=== PATIENT | female | born 1975 | race Caucasian/White ===

== ENCOUNTER 2021-01-04 18:11 | IRF | payer OTHER, SELFPAY ==
--- NOTE | ~2021-01-04 | US_ITS ---
EXAMINATION: US abdomen limited DATE: 01/11/2021 10:56 INDICATION: Right upper quadrant pain, elevated alkaline phosphatase TECHNIQUE: Multiple grayscale and Doppler ultrasound images of the abdomen were obtained. COMPARISON: None available FINDINGS: The head and body of the pancreas are normal. The pancreatic tail is obscured by bowel gas. The liver is normal with normal echogenicity and echotexture. No surface nodularity. Normal hepatope shruti flow in the main portal vein. There is a 5 mm gallbladder polyp. No gallstones or pericholecystic fluid are identified. The normal common bile duct measures 4 mm. There was no sonographic Bobo sig n. IMPRESSION: 1. No sonographic correlate for the patient's symptoms. 2. 5 mm gallbladder polyp. Reviewed, dictated and finalized at location A.
--- NOTE | ~2021-01-04 | US_ITS ---
EXAMINATION: US venous doppler LE EXAM DATE: 01/05/2021 11:38 INDICATION: Pelvic surgery last week, having left greater than right hip pain radiating. TECHNIQUE: Multiple grayscale, color flow and Doppler images of the lower extremity deep venous syste ms bilaterally were obtained and reviewed. There is no prior study for comparison. FINDINGS: Right side: The right common femoral, femoral and profunda veins demonstrate normal color flow, respi ratory variation, augmentation and compressibility. Compressibility, color flow confirmed within the right popliteal, posterior tibial, peroneal, and greater saphenous veins. Left side: The left common femoral, femoral and profunda veins demonstrate normal color flow, respira tory variation, augmentation and compressibility. Compressibility, color flow confirmed within the l eft popliteal, posterior tibial, peroneal, and greater saphenous veins. IMPRESSION: No lower extremity deep venous thrombosis bilaterally. Reviewed, dictated and finalized at location B.
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
--- NOTE | 2021-01-04 18:50 | ADMGEN ---
This patient, Malissa Woo, was admitted to [facility] Room 220-02. Patient/family oriented to hospital policies and general routines including ID bracelet, bed and alarms, visiting hours, pain management, procedures, bathroom and other care routines, personal items, smoking policy, room service/diet, and visiting hours. Information on how to activate the Rapid Response Team has been discussed. Patient/Family are encouraged to report perceived risks to care and to ask questions if they do not understand what they are told or what they should do.
[2021-01-04 18:51] VITALS: BMI 29.5
[2021-01-04 18:52] VITALS: BP 115/40; PULSE 110; RESP 18; TEMP 36.9; O2SAT 100
[2021-01-04] MEDS: oxyCODONE HCL (*CRX) 5 MG TAB IR 10 MG PO (19:26)
[2021-01-04] MEDS: GABAPENTIN 300 MG CAPSULE 600 MG PO (20:56)
[2021-01-04] MEDS: MELATONIN 3 MG TABLET PO (20:56)
[2021-01-04] MEDS: CYCLOBENZAPRINE HCL 10 MG TABLET PO (20:57)
[2021-01-04 21:41] VITALS: BP 128/49; PULSE 102; RESP 16; TEMP 36.7; O2SAT 100
[2021-01-05] VITALS (8 sets, daily range): BP systolic 106–135; BP diastolic 60–70; PULSE 97–105; RESP 16–18; TEMP 36.1–37.3; O2SAT 96–100; BMI 29.5
[2021-01-05 05:22] LABS: Basophils Absolute Auto 0.1 K/mm3 (0.0-0.1); Basophils Percent Auto 0.8 % (0.2-1.2); Eosinophils Absolute Auto 0.3 K/mm3 (0-0.3); Eosinophils Percent Auto 2.9 % (0-4.4); Hematocrit 23.2 % (37.0-47.0); Lymphocytes Absolute Auto 1.64 K/mm3 (0.9-3.2); Lymphocytes Percent Auto 16.4 % (18.3-44.2); Mean Corpuscular HGB Conc 29.7 g/dl (32-36); Mean Corpuscular Hemoglobin 26.3 pg (26-34); Mean Corpuscular Volume 88.5 fl (80-100); Mean Platelet Volume 10.3 fl (7.4-10.4); Monocytes Absolute Auto 0.7 K/mm3 (0.1-0.6); Neutrophils Absolute Auto 5.8 K/mm3 (1.3-6.7); Neutrophils Percent Auto 57.9 % (45.5-73.1); Nucleated Red Blood Cells Absolute Auto 0.2 K/mm3 (0.0-0.012); Nucleated Red Blood Cells Perc 2.2 % (0.0-0.2); Platelet Count Result 309 k/mm3 (150-375); Red Blood Count 2.62 M/mm3 (4.2-5.4); Red Cell Distribution Width 18.6 % (11.5-14.5)
[2021-01-05 05:30] LABS: Alanine Aminotransferase 137 U/L (4-35); Albumin Level 2.8 g/dL (3.5-5.1); Alkaline Phosphatase 154 U/L (38-126); Anion Gap 4 mmol/L (8-16); Aspartate Amino Transferase 151 U/L (14-36); Bilirubin,Total 1.2 mg/dL (0.2-1.3); Blood Urea Nitrogen 10 mg/dL (7-17); Carbon Dioxide 27 mmol/L (22-30); Chloride 105 mmol/L (98-107); Estimated CRCL calculation 102 ml/min; Estimated Glomerular Filt Rate > 60; Glucose 97 mg/dL (65-105); Potassium 3.7 mmol/L (3.4-5.0); Sodium 136 mmol/L (137-145)
[2021-01-05 05:52] LABS: Hemoglobin 6.9 g/dL (12.0-15.0)
[2021-01-05 05:54] LABS: Hypochromasia 2+ (NORMAL); Platelet Estimate Adequate (Adequate)
[2021-01-05] MEDS: GABAPENTIN 300 MG CAPSULE 600 MG PO ×3 (06:08→20:50)
[2021-01-05] MEDS: CYCLOBENZAPRINE HCL 10 MG TABLET PO ×2 (06:09→13:08)
[2021-01-05 07:30] LABS: Add Urine Microscopic? YES; Appearance Urine Clear (Clear); Bacteria Urine Trace /hpf; Bilirubin Urine Negative (Negative); Blood Urine Negative (Negative); Color Urine Amber (Yellow); Glucose Urine UA Negative (Negative); Ketones Urine Negative (Negative); Leukocyte Esterase Ur Negative LEU/UL (Negative); Mucus Urine Rare /lpf; Nitrate Urine Negative (Negative); Protein Urine 1+ mg/dL (Negative); RBC Urine 0-2 /hpf (0-2); Specific Grav Ur 1.016 (1.001-1.035); Squamous Epithelial Cell Urine Rare /hpf (Few)
[2021-01-05] MEDS: OXYBUTYNIN CHLORIDE 5 MG TABLET PO ×2 (08:38→13:08)
[2021-01-05] MEDS: ENOXAPARIN 40 MG/0.4 ML SYRINGE SUB-Q (08:38)
[2021-01-05] MEDS: ACETAMINOPHEN 500 MG TABLET 1000 MG PO ×2 (08:38→13:08)
[2021-01-05] MEDS: SENNOSIDES 8.6 MG TABLET PO (08:39)
[2021-01-05] MEDS: PARoxetine 20 MG TABLET 40 MG PO (08:39)
[2021-01-05] MEDS: oxyCODONE HCL (*CRX) 5 MG TAB IR 10 MG PO ×2 (08:39→15:20)
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
--- NOTE | 2021-01-05 10:48 | PCPTNOTE ---
Initiated physical therapy evaluation at 10:15 AM. 15 minutes of evaluation completed prior to patient being taken for doppler. Evaluation to be completed later this date. MARCELO RomeroT
[2021-01-05] MEDS: SODIUM CHLORIDE 0.9% IV 250 ML 30 ML IV CONT (12:15)
[2021-01-05] MEDS: TUBING, BLOOD PLUM PUMP TUBING 1 EACH XX (12:16)
--- NOTE | 2021-01-05 13:13 | PCNSR ---
On 01/05/21, the student,Brie Swann , provided care and completed [facility] documentation on this patient. I have reviewed the student's documentation and agree with the findings.
--- NOTE | 2021-01-05 13:38 | PCPTNOTE ---
Resumed physical therapy evaluation to patient tolerance. Pt 8/10 pain at resumed start time. Pain increases to 9/10 with transfer to bed. Pt reports dizziness/lightheadedness with bed mobility, vitals WNL. Pt unable to tolerate continued evaluation at this time. Jahaira Ash, MARCELOT
--- NOTE | 2021-01-05 14:56 | PCPTNOTE ---
Attempted to see patient at 14:34 to complete patient's PT minutes for today, however patient unable to tolerate full treatment due to increased pain and dizziness with activity. Patient short 20 minutes this date despite multiple attempts to complete patient's treatments. RN and Doctor aware of patient's pain. Will continue to see patient per plan of care. Venita Garcia, SHOWROOM SALES ASSISTANT
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
[2021-01-05] MEDS: PHARMACIST COMMUNICATION ORDER 1 EACH XX (17:48)
[2021-01-05] MEDS: MELATONIN 3 MG TABLET PO (20:50)
[2021-01-05] MEDS: methocarbamoL 750 MG TABLET PO (20:50)
[2021-01-05 21:00] LABS: Acetaminophen < 10 ug/mL (10-30)
[2021-01-06 05:27] LABS: Hematocrit 29.2 % (37.0-47.0); Hemoglobin 9.2 g/dL (12.0-15.0); Mean Corpuscular HGB Conc 31.5 g/dl (32-36); Mean Corpuscular Hemoglobin 28.4 pg (26-34); Mean Corpuscular Volume 90.1 fl (80-100); Platelet Count Result 300 k/mm3 (150-375); Red Blood Count 3.24 M/mm3 (4.2-5.4); Red Cell Distribution Width 19.6 % (11.5-14.5); White Blood Count 9.9 K/mm3 (4.5-10.0)
[2021-01-06 05:40] LABS: Alanine Aminotransferase 293 U/L (4-35); Albumin Level 2.9 g/dL (3.5-5.1); Alkaline Phosphatase 238 U/L (38-126); Anion Gap 6 mmol/L (8-16); Aspartate Amino Transferase 298 U/L (14-36); Bilirubin,Total 1.1 mg/dL (0.2-1.3); Blood Urea Nitrogen 13 mg/dL (7-17); Calcium 8.5 mg/dL (8.4-10.2); Carbon Dioxide 28 mmol/L (22-30); Chloride 107 mmol/L (98-107); Estimated CRCL calculation 102 ml/min; Estimated Glomerular Filt Rate > 60; Glucose 100 mg/dL (65-105); Potassium 4.2 mmol/L (3.4-5.0); Sodium 141 mmol/L (137-145)
[2021-01-06 05:42] VITALS: BP 128/50; PULSE 97; RESP 18; TEMP 36.2; O2SAT 99
[2021-01-06] MEDS: methocarbamoL 750 MG TABLET PO ×4 (06:01→20:40)
[2021-01-06] MEDS: GABAPENTIN 300 MG CAPSULE 600 MG PO ×3 (06:01→20:39)
[2021-01-06 08:00] VITALS: PULSE 97; RESP 18; O2SAT 99
[2021-01-06] MEDS: PARoxetine 20 MG TABLET 40 MG PO (08:23)
[2021-01-06] MEDS: ENOXAPARIN 40 MG/0.4 ML SYRINGE SUB-Q (08:23)
[2021-01-06] MEDS: SENNOSIDES 8.6 MG TABLET PO (08:24)
[2021-01-06] MEDS: oxyCODONE HCL (*CRX) 5 MG TAB IR 10 MG PO ×2 (08:28→12:04)
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
[2021-01-06 14:00] VITALS: BP 111/67; PULSE 109; RESP 18; TEMP 36.3; O2SAT 95
[2021-01-06] MEDS: MELATONIN 3 MG TABLET PO (20:39)
[2021-01-06 21:59] VITALS: BP 122/65; PULSE 104; RESP 18; TEMP 36.6; O2SAT 96
[2021-01-07 05:47] VITALS: BP 122/55; PULSE 100; RESP 18; TEMP 36.3; O2SAT 97
[2021-01-07] MEDS: GABAPENTIN 300 MG CAPSULE 600 MG PO ×3 (06:02→21:33)
[2021-01-07] MEDS: oxyCODONE HCL (*CRX) 5 MG TAB IR 10 MG PO ×2 (08:14→12:15)
[2021-01-07] MEDS: ENOXAPARIN 40 MG/0.4 ML SYRINGE SUB-Q (08:14)
[2021-01-07] MEDS: NEOMYCIN/POLYMYXIN/BACITRACIN OINTMENT 15 GM TUBE 1 APPLIC TOPICAL (08:15)
[2021-01-07] MEDS: PARoxetine 20 MG TABLET 40 MG PO (08:15)
[2021-01-07] MEDS: SENNOSIDES 8.6 MG TABLET PO (08:15)
[2021-01-07] MEDS: methocarbamoL 750 MG TABLET PO ×4 (08:15→20:37)
[2021-01-07 14:00] VITALS: BP 124/78; PULSE 104; RESP 20; TEMP 36.3; O2SAT 98
[2021-01-07] MEDS: MELATONIN 3 MG TABLET PO (20:37)
[2021-01-07 21:06] VITALS: BP 127/79; PULSE 93; RESP 16; TEMP 36.8; O2SAT 99
[2021-01-08 04:47] LABS: Hematocrit 31.2 % (37.0-47.0); Hemoglobin 9.4 g/dL (12.0-15.0)
[2021-01-08 04:57] LABS: Alanine Aminotransferase 227 U/L (4-35); Albumin Level 3.2 g/dL (3.5-5.1); Alkaline Phosphatase 276 U/L (38-126); Anion Gap 5 mmol/L (8-16); Aspartate Amino Transferase 107 U/L (14-36); Bilirubin,Total 0.8 mg/dL (0.2-1.3); Blood Urea Nitrogen 14 mg/dL (7-17); Calcium 8.6 mg/dL (8.4-10.2); Carbon Dioxide 26 mmol/L (22-30); Chloride 105 mmol/L (98-107); Estimated CRCL calculation 102 ml/min; Estimated Glomerular Filt Rate > 60; Glucose 103 mg/dL (65-105); Potassium 4.3 mmol/L (3.4-5.0); Sodium 136 mmol/L (137-145)
[2021-01-08] MEDS: GABAPENTIN 300 MG CAPSULE 600 MG PO ×2 (05:46→13:40)
[2021-01-08 06:00] VITALS: BP 130/64; PULSE 103; RESP 16; TEMP 36.3; O2SAT 97
[2021-01-08] MEDS: SENNOSIDES 8.6 MG TABLET PO (07:29)
[2021-01-08] MEDS: oxyCODONE HCL (*CRX) 5 MG TAB IR PO ×2 (07:29→12:19)
[2021-01-08] MEDS: PARoxetine 20 MG TABLET 40 MG PO (07:29)
[2021-01-08] MEDS: ENOXAPARIN 40 MG/0.4 ML SYRINGE SUB-Q (07:29)
[2021-01-08] MEDS: methocarbamoL 750 MG TABLET PO ×3 (07:29→17:07)
[2021-01-08] MEDS: NEOMYCIN/POLYMYXIN/BACITRACIN OINTMENT 15 GM TUBE 1 APPLIC TOPICAL (07:30)
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
--- NOTE | 2021-01-08 13:29 | PCNFU ---
Nutrition Follow-Up Complete: Nutrition Diagnosis: Involuntary weight gain related to decreased physical activity as evidenced by a BMI of 29.5 and patient's statement of weighing the heaviest she has ever been. Nutrition Goal: Have patient meet estimated nutritional needs. Goal has been met, patient is consuming 75-100% of meals and supplements. Nutrition recommendation: Continue with Regular diet, Ensure compact (220 calories and 9grams of protein) supplement TID, and Frozen Nutritional Treat (300 calories and 9 grams of protein) once per day. Last recorded weight is 80.5 kg. Recommend obtaining new weight. Bowel Motility: Last documented on 01/07 Labs Reviewed: Hgb(9.4), Hct (31.2), Alb (3.2), Na (136), Cr (0.6) Meds Noted: Bisacodyl, Flexeril, Lovenox, Zofran, Paxil, Miralax, Senna Additional Notes: Left hip wound and bilateral hip bruises with dry skin. Agree with diet orders. Patient reports having a better appetite and likes the supplements. Patient has no nutritional concerns/ questions at this time. Will follow up in 7 days.
[2021-01-08 14:00] VITALS: BP 124/84; PULSE 108; RESP 20; TEMP 36.4; O2SAT 98
--- NOTE | 2021-01-08 14:03 | PCPTNOTE ---
Malissa Curtis Walker was evaluated for a wheeled walker on 01/08/2021 by this physical therapist. The wheeled walker will resolve patient's mobility limitations and will be used for ADL's within the home. The patient can safely use the wheeled walker. ?The wheeled walker will resolve the patient?s mobility deficits, including NWBing L LE, decreased endurance, and balance deficits.
--- NOTE | 2021-01-08 14:18 | PCNSR ---
On 01/08/21, the student, Brie Swann, provided care and completed [facility] documentation on this patient. I have reviewed the student's documentation and agree with the findings.
--- NOTE | 2021-01-08 14:20 | PCPTNOTE ---
Brooklyn A. DOM Pat completed an inpatient rehab wheelchair evaluation on Malissa Woo on 01/08/2021. The patient is unable to safely and independently ambulate household distances due to their current impairments. Their diagnosis is L Sacral Fx,L Sup;Inf Pubic Rami Fx,L4-5 Transv Fx and their impairments include decreased strength, decreased endurance, decreased range of motion, decreased balance and lower extremity weakness. Malissa's weight bearing status is weight-bearing as tolerated on the right lower leg and non weight bearing left leg. The patient demonstrates significant functional mobility limitations that impair their ability to participate in mobility-related activities of daily living (MRADLs), including toileting, feeding, dressing, grooming, and bathing in the customary locations in the home. These limitations cannot be sufficiently resolved by the use of an appropriately fitted cane or walker. It is recommended that the patient utilize a wheelchair for functional mobility within the home in order to facilitate optimal safety, independence and participation in all MRADL's and adequately access their home environment on a regular basis. The patient's home provides adequate access between rooms, maneuvering space, and surfaces to accommodate the recommended wheelchair. The use of a wheelchair for functional mobility is strongly recommended and the patient is receptive to using the wheelchair. The use of this wheelchair will significantly improve the patient's ability to participate in MRADLS and the patient will use it on a regular basis in the home. This will facilitate optimal safety, independence, and participation. The patient has demonstrated sufficient physical and mental capabilities needed to safely propel a manual wheelchair that is provided in the home during a typical day. Recommended Wheelchair Frame: standard Recommended Wheelchair Size: 18x20 Recommended Wheelchair Cushion:standard Wheelchair Leg Recommendations: Bilateral elevating leg rests -Elevating legrests are recommended because the patient has significant edema of the lower extremities that requires an elevating legrest. -Anti-tippers are recommended due to patient demonstrating increased risk for falls. They would benefit from anti-tippers with added safety and stabilization. Brooklyn Pat SPRUE KNOCKER 01/08/2021 Evaluating Therapist Date I agree with and certify that the above recommendation is medically necessary. Referring Physician Date I agree with and certify that the above recommendation is medically necessary. Referring Physician Date
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
[2021-01-08] MEDS: MELATONIN 3 MG TABLET PO (20:51)
[2021-01-08] MEDS: methocarbamoL 750 MG TABLET 1500 MG PO (20:51)
[2021-01-08 21:12] VITALS: BP 129/55; PULSE 103; RESP 16; TEMP 36.7; O2SAT 99
[2021-01-09] MEDS: GABAPENTIN 300 MG CAPSULE 600 MG PO ×4 (00:53→21:44)
[2021-01-09] MEDS: ACETAMINOPHEN 500 MG TABLET PO (01:20)
[2021-01-09 06:00] VITALS: BP 130/72; PULSE 89; RESP 16; TEMP 36.1; O2SAT 100
[2021-01-09] MEDS: oxyCODONE HCL (*CRX) 5 MG TAB IR PO ×2 (07:37→12:45)
[2021-01-09] MEDS: ENOXAPARIN 40 MG/0.4 ML SYRINGE SUB-Q (07:37)
[2021-01-09] MEDS: PARoxetine 20 MG TABLET 40 MG PO (07:38)
[2021-01-09] MEDS: methocarbamoL 750 MG TABLET PO ×4 (07:38→20:42)
[2021-01-09] MEDS: NEOMYCIN/POLYMYXIN/BACITRACIN OINTMENT 15 GM TUBE 1 APPLIC TOPICAL (07:38)
[2021-01-09] MEDS: SENNOSIDES 8.6 MG TABLET PO (07:39)
[2021-01-09 08:13] LABS: Creatine Kinase 107 U/L (30-135)
[2021-01-09 09:40] LABS: Hepatitis B Surface Antigen Negative (Negative)
[2021-01-09 09:45] LABS: HAV RESULT Negative (Negative); Hepatitis B Core IgM Result Negative (Negative)
[2021-01-09 09:57] LABS: Hepatitis C Virus Antibody Negative (Negative)
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
[2021-01-09 14:00] VITALS: BP 138/79; PULSE 92; RESP 20; TEMP 36.6; O2SAT 98
[2021-01-09] MEDS: oxyCODONE HCL (*CRX) 10 MG TAB SR 12HR PO (20:42)
[2021-01-09] MEDS: MELATONIN 3 MG TABLET PO (20:43)
[2021-01-09 21:27] VITALS: BP 135/68; PULSE 104; RESP 18; TEMP 36.5; O2SAT 98
[2021-01-10] MEDS: GABAPENTIN 300 MG CAPSULE 600 MG PO ×3 (05:47→21:39)
[2021-01-10 05:56] VITALS: BP 124/65; PULSE 90; RESP 14; TEMP 36.1; O2SAT 98
[2021-01-10 09:14] LABS: Alanine Aminotransferase 128 U/L (4-35); Albumin Level 3.8 g/dL (3.5-5.1); Alkaline Phosphatase 309 U/L (38-126); Aspartate Amino Transferase 55 U/L (14-36); Bilirubin,Total 0.7 mg/dL (0.2-1.3)
[2021-01-10] MEDS: ENOXAPARIN 40 MG/0.4 ML SYRINGE SUB-Q (09:22)
[2021-01-10] MEDS: oxyCODONE HCL (*CRX) 2.5 MG TAB IR PO ×2 (09:22→12:38)
[2021-01-10] MEDS: SENNOSIDES 8.6 MG TABLET PO (09:23)
[2021-01-10] MEDS: methocarbamoL 750 MG TABLET PO ×4 (09:23→20:39)
[2021-01-10] MEDS: NEOMYCIN/POLYMYXIN/BACITRACIN OINTMENT 15 GM TUBE 1 APPLIC TOPICAL (09:23)
[2021-01-10] MEDS: PARoxetine 20 MG TABLET 40 MG PO (09:23)
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
[2021-01-10 13:42] VITALS: BP 136/70; PULSE 109; RESP 16; TEMP 36.3; O2SAT 99
--- NOTE | 2021-01-10 14:12 | PCPTNOTE ---
Malissa Curtis Walker was evaluated for a standard walker on 01/10/2021 by this physical therapist habilitation assistant. The standard walker will resolve patient's mobility limitations and will be used for ADL's within the home. The patient can safely use the standard walker. ?The standard walker will resolve the patient?s mobility deficits, including impaired balance, decrease strength, decrease endurance and limited weight bearing on right leg.
[2021-01-10 16:19] LABS: Alanine Aminotransferase 144 U/L (4-35); Alkaline Phosphatase 374 U/L (38-126); Anion Gap 7 mmol/L (8-16); Aspartate Amino Transferase 74 U/L (14-36); Bilirubin,Total 0.8 mg/dL (0.2-1.3); Blood Urea Nitrogen 17 mg/dL (7-17); Calcium 9.8 mg/dL (8.4-10.2); Carbon Dioxide 30 mmol/L (22-30); Chloride 104 mmol/L (98-107); Estimated CRCL calculation 89 ml/min; Estimated Glomerular Filt Rate > 60; Glucose 113 mg/dL (65-105); Potassium 4.9 mmol/L (3.4-5.0); Sodium 141 mmol/L (137-145)
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
[2021-01-10] MEDS: MELATONIN 3 MG TABLET PO (20:39)
[2021-01-10] MEDS: oxyCODONE HCL (*CRX) 10 MG TAB SR 12HR PO (20:39)
[2021-01-10 21:56] VITALS: BP 124/68; PULSE 58; RESP 18; TEMP 36.4; O2SAT 96
[2021-01-11 05:30] LABS: Alanine Aminotransferase 113 U/L (4-35); Albumin Level 3.7 g/dL (3.5-5.1); Alkaline Phosphatase 328 U/L (38-126); Aspartate Amino Transferase 46 U/L (14-36); Bilirubin,Total 0.7 mg/dL (0.2-1.3)
[2021-01-11] MEDS: GABAPENTIN 300 MG CAPSULE 600 MG PO ×3 (05:49→20:52)
[2021-01-11 05:53] VITALS: BP 108/70; PULSE 100; RESP 16; TEMP 35.7; O2SAT 97
[2021-01-11] MEDS: ENOXAPARIN 40 MG/0.4 ML SYRINGE SUB-Q (09:38)
[2021-01-11] MEDS: methocarbamoL 750 MG TABLET PO ×4 (09:38→20:51)
[2021-01-11] MEDS: SENNOSIDES 8.6 MG TABLET PO (09:38)
[2021-01-11] MEDS: PARoxetine 20 MG TABLET 40 MG PO (09:38)
[2021-01-11] MEDS: NEOMYCIN/POLYMYXIN/BACITRACIN OINTMENT 15 GM TUBE 1 APPLIC TOPICAL (09:39)
[2021-01-11] MEDS: oxyCODONE HCL (*CRX) 2.5 MG TAB IR PO ×2 (09:41→13:00)
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
[2021-01-11 14:00] VITALS: BP 132/79; PULSE 104; RESP 18; TEMP 36.3; O2SAT 98
[2021-01-11] MEDS: oxyCODONE HCL (*CRX) 10 MG TAB SR 12HR PO (20:51)
[2021-01-11] MEDS: MELATONIN 3 MG TABLET PO (20:52)
[2021-01-11 22:00] VITALS: BP 116/60; PULSE 95; RESP 18; TEMP 36.1; O2SAT 98
[2021-01-12 05:26] LABS: Basophils Absolute Auto 0.1 K/mm3 (0.0-0.1); Basophils Percent Auto 0.5 % (0.2-1.2); Eosinophils Absolute Auto 0.2 K/mm3 (0-0.3); Eosinophils Percent Auto 2.5 % (0-4.4); Hematocrit 32.7 % (37.0-47.0); Hemoglobin 9.7 g/dL (12.0-15.0); Immature Granulocyte Absolute 0.15 K/mm3 (0.00-0.031); Immature Granulocyte Percent A 1.6 % (0-0.5); Lymphocytes Percent Auto 18.7 % (18.3-44.2); Mean Corpuscular HGB Conc 29.7 g/dl (32-36); Mean Corpuscular Hemoglobin 27.6 pg (26-34); Mean Corpuscular Volume 92.9 fl (80-100); Mean Platelet Volume 10.6 fl (7.4-10.4); Monocytes Absolute Auto 0.8 K/mm3 (0.1-0.6); Monocytes Percent Auto 8.2 % (2.6-8.5); Neutrophils Absolute Auto 6.2 K/mm3 (1.3-6.7); Neutrophils Percent Auto 68.5 % (45.5-73.1); Nucleated Red Blood Cells Perc 0.3 % (0.0-0.2); Platelet Count Result 599 k/mm3 (150-375); Red Blood Count 3.52 M/mm3 (4.2-5.4); Red Cell Distribution Width 21.1 % (11.5-14.5); White Blood Count 9.1 K/mm3 (4.5-10.0)
[2021-01-12 05:41] LABS: Alanine Aminotransferase 89 U/L (4-35); Albumin Level 3.4 g/dL (3.5-5.1); Alkaline Phosphatase 301 U/L (38-126); Anion Gap 3 mmol/L (8-16); Aspartate Amino Transferase 44 U/L (14-36); Bilirubin,Total 0.5 mg/dL (0.2-1.3); Blood Urea Nitrogen 19 mg/dL (7-17); Calcium 8.6 mg/dL (8.4-10.2); Carbon Dioxide 30 mmol/L (22-30); Chloride 105 mmol/L (98-107); Estimated CRCL calculation 89 ml/min; Estimated Glomerular Filt Rate > 60; Glucose 96 mg/dL (65-105); Potassium 4.4 mmol/L (3.4-5.0); Sodium 138 mmol/L (137-145)
[2021-01-12 05:57] LABS: Anisocytosis 1+ (NORMAL); Hypochromasia 2+ (NORMAL); Platelet Estimate Adequate (Adequate)
[2021-01-12 06:00] VITALS: BP 100/42; PULSE 98; RESP 18; TEMP 36.1; O2SAT 99
[2021-01-12] MEDS: GABAPENTIN 300 MG CAPSULE 600 MG PO (06:29)
[2021-01-12 08:00] VITALS: PULSE 98; RESP 18; O2SAT 99
[2021-01-12] MEDS: PARoxetine 20 MG TABLET 40 MG PO (08:48)
[2021-01-12] MEDS: methocarbamoL 750 MG TABLET PO (08:48)
[2021-01-12] MEDS: ENOXAPARIN 40 MG/0.4 ML SYRINGE SUB-Q (08:49)
[2021-01-12] MEDS: SENNOSIDES 8.6 MG TABLET PO (08:49)
[2021-01-12] MEDS: NEOMYCIN/POLYMYXIN/BACITRACIN OINTMENT 15 GM TUBE 1 APPLIC TOPICAL (08:49)
[2021-01-12] MEDS: oxyCODONE HCL (*CRX) 2.5 MG TAB IR PO ×2 (08:49→11:30)
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
--- NOTE | 2021-01-12 14:44 | PC.NURSE ---
Went over dressing changes and Lovenox teaching with patient. Coverlet dressings sent home with patient. Patient did own lovenox injection to self this a.m.
== END 2021-01-12 11:46 | disposition home health service (06) | DRG 561 ==
PROVIDERS: Internal Medicine; Physician Assistant; Admitting Provider Physical Medicine & Rehabilitation; PCP Family Medicine; Visit Provider Physical Medicine & Rehabilitation
DX: S32.129D Unspecified Zone II fracture of sacrum, subsequent encounter for fracture with routine healing (principal); S32.512D Fracture of superior rim of left pubis, subsequent encounter for fracture with routine healing; S32.058D Other fracture of fifth lumbar vertebra, subsequent encounter for fracture with routine healing; S32.511D Fracture of superior rim of right pubis, subsequent encounter for fracture with routine healing; S32.391D Other fracture of right ilium, subsequent encounter for fracture with routine healing; S32.048D Other fracture of fourth lumbar vertebra, subsequent encounter for fracture with routine healing; V03.10XD Pedestrian on foot injured in collision with car, pick-up truck or van in traffic accident, subsequent encounter; D64.9 Anemia, unspecified; I34.1 Nonrheumatic mitral (valve) prolapse; N63.10 Unspecified lump in the right breast, unspecified quadrant; K82.8 Other specified diseases of gallbladder; R60.0 Localized edema; F41.9 Anxiety disorder, unspecified
CPT/HCPCS: 36415; 36430; 76705; 80053; 80074; 80076; 80307; 81001; 82550; 82977; 85014; 85018; 85025; 85027; 86850; 86900; 86901; 86920; 93970; 97110; 97116; 97161; 97165; 97530; 97535; 97542; A9270; J1650; J7050; P9016